=== PATIENT | female | born 1985 | race Caucasian/White ===

== ENCOUNTER 2016-12-30 23:33 | Emergency (ER) | payer MEDICAID ==
[2016-12-30 23:44] VITALS: BP 109/88; PULSE 87; RESP 18; TEMP 98.4; O2SAT 98
--- NOTE | 2016-12-31 00:25 | EDPHY ---
H & P Stated Complaint: blurred vision r eye pain Time Seen by Provider: 12/31/16 00:01 HPI/ROS: HPI The patient presents with vision changes, now resolved. Today, the patient was at a friend's house, watching television, drink 1 glass of wine in use marijuana. She also did take new magnesium in sonya supplements. When she went home from her friend's house she was getting ready to have a bath because of some menstrual cramping she was having when she developed slow onset of blurry vision in her right eye. She says it felt as if she could not focus her vision. She describes some flickering throughout her visual field on the right. She then developed palpitations and began to have which she describes as a panic attack. She has had these before. She felt very anxious and took Klonopin 1 mg. She also had 1 episode of vomiting. She noticed that her right hand was numb and was in a claw shape. EMS was called to evaluated her on scene and said she could drive herself to the emergency department. She is now feeling well, her vision has improved completely, she is having some pressure retro-orbitally on the right side. She is not having any ongoing nausea, vomiting, dizziness, headache. REVIEW OF SYSTEMS Constitutional: No fever, no chills. Eyes: No discharge. ENT: No sore throat. Cardiovascular: No chest pain, no palpitations. Respiratory: No cough, no shortness of breath. Gastrointestinal: No abdominal pain, no vomiting. Genitourinary: No hematuria. Musculoskeletal: No back pain. Skin: No rashes. Neurological: No headache. PMHx: Complex regional pain syndrome, followed by a now trip path Soc Hx: Housed, uses alcohol and marijuana medically PHYSICAL General Appearance: Alert, no distress Eyes: Pupils equal and round no pallor or injection, extraocular movements are full, discs are sharp and flat bilaterally ENT, Mouth: Mucous membranes moist Respiratory: There are no retractions, lungs are clear to auscultation Cardiovascular: Regular rate and rhythm Gastrointestinal: Abdomen is soft and non-tender, no masses, bowel sounds normal Neurological: Alert and oriented x3, cranial nerves 2-12 are intact, 5/5 strength in upper and lower extremities which is symmetric, normal sensation to light touch Skin: Warm and dry, no rashes Musculoskeletal: Neck is supple non tender Extremities: symmetrical, full range of motion Psychiatric: Patient is oriented X 3, there is no agitation Source: Patient Exam Limitations: No limitations - Personal History LMP (Females 10-55): Now Current Tetanus/Diphtheria Vaccine: Yes Current Tetanus Diphtheria and Acellular Pertussis (TDAP): Yes - Medical/Surgical History Hx Asthma: Yes Hx Chronic Respiratory Disease: No Hx Diabetes: No Hx Cardiac Disease: No Hx Renal Disease: No Hx Cirrhosis: No Hx Alcoholism: No Hx HIV/AIDS: No Hx Splenectomy or Spleen Trauma: No Other PMH: crps l leg - Social History Smoking Status: Current some day smoker Constitutional: Initial Vital Signs Temperature (C) 36.9 C 12/30/16 23:39 Heart Rate 87 12/30/16 23:39 Respiratory Rate 18 12/30/16 23:39 Blood Pressure 109/88 H 12/30/16 23:39 O2 Sat (%) 98 12/30/16 23:39 O2 Delivery Mode Room Air Allergies/Adverse Reactions: amoxicillin Allergy (Verified 12/30/16 23:38) Home Medications: Medication Instructions Recorded KLONOPIN 12/30/16 Medical Decision Making Differential Diagnosis: 31-year-old female with complex regional pain syndrome and history of anxiety attacks presents with episode of visual changes of right eye which have now resolved. After she experienced these visual changes, she developed a self- described panic attack which has now resolved as well after taking Klonopin. Differential diagnosis includes atypical migraine, anxiety induced symptoms, TIA is a consideration, however her description of her symptoms is not classic for TIA and she does not have any known risk factors; retinal detachment is also a consideration, however visual changes have completely resolved. Given she is now feeling slight pressure behind her right eye, had these vision changes, had vomiting, atypical migraine is most likely diagnosis I believe. I have discussed this with her. She will be discharged home and can take anti- inflammatories as needed. She is in agreement with this plan. Departure - Departure Disposition: Home, Routine, Self-Care Clinical Impression: Vision changes, Anxiety attack Condition: Good Instructions: Migraine Headache (ED), Blurred Vision (ED) Additional Instructions: Please return to the emergency room if you develop changes in her vision which last more then 30 minutes. You can take aspirin, ibuprofen as needed for any head pressure were pain. I have given you the follow-up information for Dr. Hicks the superintendent house to you can call if you have any additional changes in her vision. Your symptoms could be caused by an atypical migraine, if this is the case, you should improve with ibuprofen or aspirin. Referrals: Charis Vega MD [Primary Care Provider] - As per Instructions Zuhair Hicks MD [Medical Doctor] - As per Instructions
== END 2016-12-31 00:43 | disposition home or self-care (01) ==
DX: H53.9 Unspecified visual disturbance (principal); F41.9 Anxiety disorder, unspecified; F17.200 Nicotine dependence, unspecified, uncomplicated; J45.909 Unspecified asthma, uncomplicated

== ENCOUNTER → 2016-12-31 | Outpatient (CLI) | payer MEDICAID ==
[~2016-12-31] MED LIST: GADOBUTROL 10 ML VIAL IVP ONE
== END ==
LOC: FIMAGING 14:20
PROVIDERS: ATTEND Ophthalmology Pediatric Ophthalmology and Strabismus Specialist
DX: H53.9 Unspecified visual disturbance (principal); R20.2 Paresthesia of skin
CPT/HCPCS: A9585

== ENCOUNTER → 2017-05-10 | Outpatient (CLI) | payer MEDICAID | LOC: FIMAGING 12:46 | PROVIDERS: ATTEND Internal Medicine | DX: M94.8X6 Other specified disorders of cartilage, lower leg (principal); G90.50 Complex regional pain syndrome I, unspecified ==